=== PATIENT | female | born 1950 | race Caucasian/White ===

== ENCOUNTER 2016-12-07 19:32 | Inpatient (IN) | payer BC ==
--- NOTE | ~2016-12-07 | DS ---
Discharge Summary [facility] [address] [place]. [address] NAME: TAMEKA JIMENEZ : 54 STATUS : DIS IN PAT#: [id number] AGE: 66 ADM/REG DATE : 12/07/16 MR#: [id number] REPORT SERV DATE: 12/20/16 DICTATED BY: MARY ELLEN BATRES DATE: 12/19/16 REPORT STATUS : Draft TRANSCRIBED BY: KIM DATE: 12/19/16 Data Collection from hospitalization DISCHARGE DIAGNOSES: 1. Atrial flutter. 2. Paroxysmal atrial fibrillation. 3. Hypertension. 4. Gastroesophageal reflux disease. 5. Depression. CONSULTATIONS: None. PROCEDURES PERFORMED: Electrophysiology study, ablation, and pacemaker implantation, 12/09/2016. MEDICATIONS: Fosamax 70 mg on Mondays as instructed, Tessalon 100 mg three times a day, Zyrtec 10 mg daily as needed, Maximum D3 one capsule on Thursday as instructed, Celexa 20 mg daily, Nexium 20 mg daily, Cozaar 100 mg daily, Lopressor 25 mg twice a day, Xarelto 20 mg at bedtime, Betapace 80 mg every 12 hours as instructed, Ultram 50 mg every four hours as needed. CONDITION AT DISCHARGE: Stable. DISPOSITION: The patient was discharged home on a low-sodium, low-cholesterol, cardiac diet with activities as instructed. She would follow up with Dr. Carlos Branham, 12/31/[address] Mary Ellen Batres, 12/22/2016. She would follow up for an EKG at [facility] Main office, 12/18/2016. HOSPITAL COURSE: This is a 66-year-old female, who has a history of paroxysmal atrial fibrillation, currently treated with Xarelto and beta-steven. The patient said she had never started her flecainide that had been prescribed in October of 2016 because she was "scared." She has had episodes of elevated heart rate since August 2016 and these became more persistent since 12/04/2016. She had noticed her heart rate at time being about 140 beats per minute. She never began the flecainide. She said that she discussed the medication with her pharmacist and she was just cautious and scared given the side effects discussed. She reported associated shortness of breath and 5/10 chest pain as well as fatigue and dizziness. She denied nausea or diaphoresis. She was admitted to the hospital at this time for further evaluation and treatment. Upon admission, her white blood cell count was 13.3, INR level was 1.4, troponin levels were 0.06 and 0.05. The patient had paroxysmal atrial fibrillation and was currently receiving Xarelto and beta-steven. She reports that she never initiated the flecainide. She had now converted to a sinus rhythm. Flecainide was going to be initiated. Blood pressure medications were going to be continued as well as her proton pump inhibitor. The next day, the patient had undergone a previous radiofrequency ablation. At this time, she was back in a sinus rhythm. Her Xarelto was held. It was felt that she would need a dual-chamber pacemaker placed. Flecainide was going to be continued. On the , she was in atrial fibrillation/flutter with rapid ventricular response with spontaneous conversion to sinus Discharge Summary [address] [address] NAME: TAMEKA JIMENEZ : 54 STATUS : DIS IN PAT#: [id number] AGE: 66 ADM/REG DATE : 12/07/16 MR#: [id number] REPORT SERV DATE: 12/20/16 DICTATED BY: MARY ELLEN BATRES DATE: 12/19/16 REPORT STATUS : Draft TRANSCRIBED BY: KIM DATE: 12/19/16 with a long 7-8 second pause. She had been scheduled to undergo a pacemaker. Flecainide had been started. She had recurrent paroxysmal atrial fibrillation/flutter that morning. She was felt to have atrial flutter and sick sinus syndrome. The patient underwent electrophysiology study, ablation, and pacemaker implantation. She tolerated this well and there were no complications. Discharge planning was performed. On 12/10/2016, the patient had been started on sotalol. She was alert and cooperative. Discharge instructions were given. Due to her improved and stable condition, she was discharged home with the above- stated instructions. Information collected by: Georgina Richardson I submit the above information as my discharge summary. CHRISTIAN/KIM Mary Ellen Batres M.D. / [id number] CC: Manpreet Caban M.D.
--- NOTE | ~2016-12-07 | TEE ---
Transesophageal Echocardiogram [facility] [address] [place]. [address] NAME: TAMEKA JIMENEZ : 54 STATUS : ADM Sha PAT#: [id number] AGE: 66 ADM/REG DATE : 12/07/16 MR#: [id number] REPORT SERV DATE: 12/09/16 DICTATED BY: CESAR DHILLON DATE: 12/09/16 REPORT STATUS : Draft TRANSCRIBED BY: MODLeonid DATE: 12/09/16 INDICATIONS: A 66-year-old woman with atrial flutter. PROCEDURE: After questions were answered and consents were signed, the patient was sedated with propofol per Anesthesia. The probe was placed in the mid esophagus, and images were obtained without difficulty. At the conclusion of the procedure, the probe was withdrawn. The patient was to proceed with her EP procedure. 2D INTERPRETATION: The left ventricular function is mildly decreased with an estimated EF of 45%, although the apex is not well visualized. No paradoxical septal motion is suggested. The mitral valve opened adequately. No prolapse was noted. Mild thickening was noted. No thrombus was noted in the left atrium nor the left atrial appendage. The interatrial septum was intact. The right atrium and right ventricle were grossly normal in size. The aortic valve was sclerotic, but opened adequately. COLOR FLOW: Moderate tricuspid and mitral regurgitation with moderate aortic insufficiency. DOPPLER: Doppler flow velocities in left atrial appendage were approximately 20 cm/second. CONCLUSION: 1. MILDLY DECREASED LEFT VENTRICULAR SYSTOLIC FUNCTION WITH ESTIMATED LVEF OF 45%. 2. MODERATE VALVULAR REGURGITATION ABOVE. 3. NO SIGN OF LEFT ATRIAL APPENDAGE CLOT. WO/YANICKL Cesar Dhillon M.D., Ph.D, F.A.C.C. / [id number] CC: Manpreet Caban M.D.
--- NOTE | ~2016-12-07 | HP ---
History And Physical [facility] [address] [place]. [address] NAME: TAMEKA JIMENEZ : 54 STATUS : ADM Sha PAT#: [id number] AGE: 66 ADM/REG DATE : 12/07/16 MR#: [id number] REPORT SERV DATE: 12/08/16 DICTATED BY: LANI GRACIA DATE: 12/08/16 REPORT STATUS : Draft TRANSCRIBED BY: MODLeonid DATE: 12/08/16 DATE OF ADMISSION: 12/07/2016 MEDICAL CENTER REPRESENTATIVE: Carlos Branham M.D. DOULA: Al Batres M.D. CHIEF COMPLAINT: Elevated heart rate. HISTORY OF PRESENT ILLNESS: A very pleasant 66-year-old white female with known history of PAF, currently treated with Xarelto and beta-steven. The patient states that she never started her flecainide prescribed in 10/2016 because she was "scared." She has had episodes of elevated heart rate since 08/2016 that became more persistent since 12/04. She has noticed her heart rate at times being 140 beats per minute on her wrist monitor. Again, she never began the flecainide prescribed in 10/[address] Branham. She states she discussed the medication with her pharmacist and she was just cautious and scared given the side effects discussed. She reports associated shortness of breath, 5/10 chest pain with dizziness and fatigue. Denies any nausea or diaphoresis. She reports some belching, which is unchanged from baseline. The chest pain has resolved at time of interview in the CDU. The patient denies any personal history of myocardial infarction, stroke, DVT, or pulmonary embolus. The patient denies any recent fever or chills. Describes palpitations since August that became more persistent last week. Denies syncopal episodes. No PND or orthopnea. PAST MEDICAL HISTORY: 1. PAF. a. On Xarelto and beta-steven. b. Status post ablation, 04/2016. c. Never started flecainide 50 twice daily, prescribed in 10/2016. 2. Hypertension. 3. Mild aortic stenosis. 4. GERD. 5. Depression. 6. Cholesterol, followed by PCP. 7. Denies diabetes. PAST SURGICAL HISTORY: 1. Ablation, 04/2016. 2. Cholecystectomy. 3. Hysterectomy. 4. Two C-sections. 5. Tonsillectomy. SOCIAL HISTORY: She is single, with two children. 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 Does not have a structured exercise routine. Denies tobacco or illicits. Occasionally consumes alcohol. History And Physical [address] [place]. [address] NAME: TAMEKA JIMENEZ : 54 STATUS : ADM Sha PAT#: [id number] AGE: 66 ADM/REG DATE : 12/07/16 MR#: [id number] REPORT SERV DATE: 12/08/16 DICTATED BY: LANI GRACIA DATE: 12/08/16 REPORT STATUS : Draft TRANSCRIBED BY: KIM DATE: 12/08/16 FAMILY HISTORY: Father of a heart attack at 71 with reported previous coronary events. Mother with a stroke in her 70s and a heart attack in her 70s, remains alive at the age of 84. REVIEW OF SYSTEMS: A 14-point review of systems performed, significant per HPI. No other contributory diagnoses identified. ALLERGIES: NO KNOWN DRUG ALLERGIES. HOME MEDICATIONS: Fosamax 70 mg weekly; Zyrtec 10 mg p.r.n.; Maximum D3, 10,000 units weekly; Celexa 20 mg daily; Nexium 20 mg daily; losartan 100 mg daily; metoprolol tartrate 25 mg twice daily, Xarelto 20 mg at bedtime, flecainide 50 mg twice daily prescribed 10/22/2016 (never started). PHYSICAL EXAMINATION: VITAL SIGNS: Blood pressure 122/58, pulse 62, respirations 22, temperature 98.3, O2 saturation 96% on room air. Height 5 feet 8 inches, weight 187 pounds, BMI 28.4. GENERAL: Cooperative, in no apparent distress. HEENT: Pupils 2 mm. Sclera nonicteric. Nares patent. Moist mucous membranes. No xanthelasma. NECK: Trachea midline. No thyromegaly. No JVD. No bruits. LYMPH: No cervical lymphadenopathy. No supraclavicular lymphadenopathy. RESPIRATORY: Unlabored respirations. Breath sounds clear bilaterally to posterior auscultation. No wheezes or rhonchi. CARDIOVASCULAR: Regular rate. 1/6 murmur best audible at left base. EXTREMITIES: Without edema. Pulses 2+ bilaterally. ABDOMEN: Soft, nontender, nondistended. Normal bowel sounds auscultated throughout. No organomegaly. SKIN: Warm, dry extremities. No pallor or cyanosis. PSYCHIATRIC: Appropriate affect. Alert, oriented x3. LABORATORY DATA: Troponin 0.06 and 0.05. TSH 4.270, free T4 of 0.96. Potassium 3.9, BUN 10, creatinine 0.93, glucose 109, calcium 10.5, magnesium 2.2. BNP 681.8. WBC 13.3, hemoglobin 12.0, hematocrit 36.5, platelet count 940,000. PT 18.4, INR 1.5. EKG, sinus rhythm with ST and T-wave abnormalities in anterior and lateral leads (previously atrial flutter), now sinus rhythm. Echo, 05/14/2016: EF 55 to 60. Small loculated pericardial effusion without evidence of tamponade. MPI, 11/2015: Anuj stage 2, 4.75 minutes, 7 METs. No chest pain, but with EKG changes. Normal perfusion images. Ablation, 04/2016, by Dr. Batres. History And Physical [address] [address] NAME: TAMEKA JIMENEZ : 54 STATUS : ADM Sha PAT#: [id number] AGE: 66 ADM/REG DATE : 12/07/16 MR#: [id number] REPORT SERV DATE: 12/08/16 DICTATED BY: LANI GRACIA DATE: 12/08/16 REPORT STATUS : Draft TRANSCRIBED BY: MODLeonid DATE: 12/08/16 ASSESSMENT AND PLAN: 1. Paroxysmal atrial fibrillation, currently on Xarelto and beta-steven. The patient reports never initiated flecainide as prescribed on 10/22/2016, has now converted to sinus rhythm. The patient will be seen by a rounding physician this morning with plan to initiate flecainide 50 twice daily. Follow up with Cardiology for six-month ablation check with Dr. Batres and Dr. Branham as appropriate. 2. Hypertension. Monitor blood pressure and continue home meds. 3. Gastroesophageal reflux disease. Continue PPI. 4. BP of 682 and no evidence of heart failure and troponin of 0.06 and 0.05, most likely demand related. The patient will follow up with Cardiology as previously scheduled. LUIS/YANICKL JEOVANY Pardo, RETREAD SUPERVISOR- / [id number] CC: JEOVANY Pardo, RETREAD SUPERVISOR- Manpreet Kerns M.D. David Wendt, M.D.
[2016-12-07 17:48] LABS: INTERNATIONAL NORMAL RATI 1.5 UNITS (-)
[2016-12-07 17:49] LABS: BASOPHILS 2.4 %; BASOPHILS ABSOLUTE 0.32 10/3/uL (0.0-0.16); EOSINOPHILS 4.9 %; EOSINOPHILS ABSOLUTE 0.65 10/3/uL (0.0-0.53); ER CBC TAT 0 Hrs 14 Mins; HEMATOCRIT 36.5 % (36.0-48.0); IMMATURE GRANULOCYTES 0.5 %; IMMATURE GRANULOCYTES ABSOLUTE 0.07 10/3/uL (0.0-0.11); LYMPHOCYTES 28.9 %; LYMPHOCYTES ABSOLUTE 3.85 10/3/uL (0.67-4.30); MEAN CORPUS HGB CONC 32.9 g/dL (32.0-36.0); MEAN CORPUSCULAR HEMOGLOB 29.2 pg (26.0-34.0); MEAN CORPUSCULAR VOLUME 88.8 fL (80-100); MEAN PLATELET VOLUME 10.5 fL (9.2-13.0); MONOCYTES 6.5 %; MONOCYTES ABSOLUTE 0.87 10/3/uL (0.21-1.20); NEUTROPHILS 56.8 %; NEUTROPHILS ABSOLUTE 7.54 10/3/uL (2.02-8.40); NUCLEATED RED BLOOD CELLS 0.6 /100WBC (0-0); PARTIAL THROMBO TIME 39.9 SEC (22.5-37.2); RBC DISTRIBUTION WIDTH 19.2 % (12.0-16.0); RED CELL COUNT 4.11 10/6/uL (4.0-5.6); WHITE BLOOD CELLS 13.3 10/3/uL (4.5-10.5)
[2016-12-07 17:50] LABS: MANUAL DIFF NO %; PLATELET COUNT 940 10/3/uL (150-400)
[2016-12-07 17:56] LABS: BUN (BLOOD UREA NITROGEN) 10 MG/DL (6-23); CALCIUM, SERUM 10.5 MG/DL (8.5-10.4); CHEST PAIN PROFILE TAT 0 Hrs 21 Mins; CHLORIDE, SERUM 113 MMOL/L (96-112); CO2 (CARBON DIOXIDE) 26 MMOL/L (24-34); CREATININE 0.93 MG/DL (0.55-1.02); GFR AFRICAN AMERICAN 75 ML/MIN (>=60); GFR NON AFRICAN AMERICAN 65 ML/MIN (>=60); GLUCOSE, SERUM 109 MG/DL (60-99); POTASSIUM, SERUM 3.9 MMOL/L (3.5-5.3); SODIUM, SERUM 144 MMOL/L (135-148); TROPONIN I 0.06 NG/ML (<0.05)
[2016-12-07 17:58] LABS: PROTIME (NOT ORD) 18.4 SEC (12.0-14.5)
[2016-12-07 18:00] LABS: RBC MORPHOLOGY NORM (NORMAL)
[~2016-12-07 19:32] MED LIST: ACET500CAP PO; ALKA-SELTZER H1 EACH PO; BETAPACE80 PO; BYSTOLIC5 MG PO; CARDCD180 PO; CARTIA XT180 MG/24 PO; CELEXA20 PO; CELEXA40 MG PO; COZAAR100 MG PO; FOSAMAX70 MG PO; LOP25 PO; LOP50 PO; MAXIMUM D3 PO; NEXIUM20 M1 PO; XARELTO20 MG PO; ZYRTEC ALLGY10 MG PO
[2016-12-08 00:13] LABS: ALBUMIN 3.7 G/DL (3.5-5.0); DIRECT BILIRUBIN 0.2 MG/DL (0.0-0.4); FREE T4 0.96 NG/DL (0.76-1.46); INDIRECT BILIRUBIN(NOT ORDER) 0.7 MG/DL (0.1-0.9); TOTAL BILIRUBIN 0.9 MG/DL (0-1.2); TROPONIN I 0.05 NG/ML (<0.05); ULTRASENSITIVE TSH 4.27 MCIU/ML (0.358-3.740)
[2016-12-08] MEDS ORDERED: FLECAINIDE100 MG PO (09:46)
[2016-12-09 04:02] LABS: BUN (BLOOD UREA NITROGEN) 13 MG/DL (6-23); CALCIUM, SERUM 9.8 MG/DL (8.5-10.4); CHLORIDE, SERUM 112 MMOL/L (96-112); CREATININE 0.83 MG/DL (0.55-1.02); GFR AFRICAN AMERICAN 86 ML/MIN (>=60); GFR NON AFRICAN AMERICAN 75 ML/MIN (>=60); GLUCOSE, SERUM 116 MG/DL (60-99); SODIUM, SERUM 142 MMOL/L (135-148)
[2016-12-09 04:05] LABS: CO2 (CARBON DIOXIDE) 21 MMOL/L (24-34)
[2016-12-09 04:08] LABS: BASOPHILS 2.6 %; BASOPHILS ABSOLUTE 0.37 10/3/uL (0.0-0.16); EOSINOPHILS 5.4 %; EOSINOPHILS ABSOLUTE 0.75 10/3/uL (0.0-0.53); HEMATOCRIT 34.3 % (36.0-48.0); HEMOGLOBIN 11.4 g/dL (12.0-16.0); IMMATURE GRANULOCYTES 0.6 %; IMMATURE GRANULOCYTES ABSOLUTE 0.08 10/3/uL (0.0-0.11); LYMPHOCYTES ABSOLUTE 3.35 10/3/uL (0.67-4.30); MEAN CORPUS HGB CONC 33.2 g/dL (32.0-36.0); MEAN CORPUSCULAR HEMOGLOB 29.3 pg (26.0-34.0); MEAN CORPUSCULAR VOLUME 88.2 fL (80-100); MEAN PLATELET VOLUME 10.6 fL (9.2-13.0); MONOCYTES ABSOLUTE 0.98 10/3/uL (0.21-1.20); NEUTROPHILS 60.4 %; NEUTROPHILS ABSOLUTE 8.45 10/3/uL (2.02-8.40); NUCLEATED RED BLOOD CELLS 0.8 /100WBC (0-0); RBC DISTRIBUTION WIDTH 19.3 % (12.0-16.0); RED CELL COUNT 3.89 10/6/uL (4.0-5.6)
[2016-12-09 04:10] LABS: MANUAL DIFF NO %; PLATELET COUNT 851 10/3/uL (150-400)
[2016-12-09 04:21] LABS: ANISOCYTOSIS 1+ (5-10/OIF) (0-5/OIF)
[2016-12-09 04:22] LABS: GIANT PLATELET OCC
[2016-12-10] MEDS ORDERED: BETAPACE80 PO (15:33)
[2016-12-10] MEDS ORDERED: TESS PO (15:35)
[2016-12-10] MEDS ORDERED: ULTRAM50 PO (15:35)
[2016-12-24] MEDS ORDERED: LIDO PO (10:06)
[2016-12-24] MEDS ORDERED: [UNRECOGNIZED DRUG - OTHER] PO (10:06)
[2016-12-24] MEDS ORDERED: ZYRTEC ALLGY10 MG PO (10:10)
[2016-12-24] MEDS ORDERED: FOSAMAX70 MG PO (10:10)
[2016-12-24] MEDS ORDERED: TESS PO (10:11)
[2016-12-24] MEDS ORDERED: CELEXA20 PO (10:12)
[2016-12-24] MEDS ORDERED: MAXIMUM D3 PO (10:12)
[2016-12-24] MEDS ORDERED: NEXIUM20 M1 PO (10:13)
[2016-12-24] MEDS ORDERED: LOP25 PO (10:14)
[2016-12-24] MEDS ORDERED: COZAAR100 MG PO (10:14)
[2016-12-24] MEDS ORDERED: XARELTO20 MG PO (10:15)
[2016-12-24] MEDS ORDERED: BETAPACE80 PO (10:15)
== END 2016-12-10 16:00 | disposition home or self-care (01) | DRG 244 ==
LOC: ER 19:32 → CDU1 19:47 → CDU2 20:30
PROVIDERS: Clinical Nurse Specialist; Emergency Medicine; Internal Medicine Cardiovascular Disease
PROC: 0JH606Z Insertion of Pacemaker, Dual Chamber into Chest Subcutaneous Tissue and Fascia, Open Approach (ICD-10-PCS; principal; 2016-12-09)
PROC: 02H63JZ Insertion of Pacemaker Lead into Right Atrium, Percutaneous Approach (ICD-10-PCS; 2016-12-09)
PROC: 02HK3JZ Insertion of Pacemaker Lead into Right Ventricle, Percutaneous Approach (ICD-10-PCS; 2016-12-09)
PROC: 4A023FZ Measurement of Cardiac Rhythm, Percutaneous Approach (ICD-10-PCS; 2016-12-09)
PROC: 4A0234Z Measurement of Cardiac Electrical Activity, Percutaneous Approach (ICD-10-PCS; 2016-12-09)
PROC: 02K83ZZ Map Conduction Mechanism, Percutaneous Approach (ICD-10-PCS; 2016-12-09)
PROC: 5A2204Z Restoration of Cardiac Rhythm, Single (ICD-10-PCS; 2016-12-09)
DX: I48.92 Unspecified atrial flutter (principal); I49.5 Sick sinus syndrome; I10 Essential (primary) hypertension; I48.0 Paroxysmal atrial fibrillation; K21.9 Gastro-esophageal reflux disease without esophagitis; Z79.01 Long term (current) use of anticoagulants; I35.0 Nonrheumatic aortic (valve) stenosis; F32.9 Major depressive disorder, single episode, unspecified; Z90.49 Acquired absence of other specified parts of digestive tract; Z90.710 Acquired absence of both cervix and uterus; Z82.3 Family history of stroke
CPT/HCPCS: 33208; 71010; 71020; 80048; 80076; 83735; 83880; 84439; 84443; 84484; 85025; 85610; 85730; 93005; 93312; 93320; 93325; 93613; 93620; 99285; A9270-GY; C1732; C1769; C1781; C1785; C1892; C1894; C1898; J0282; J0690; J2250; J2930; J3010; Q9967

== ENCOUNTER 2016-12-24 11:04 | Inpatient (IN) | payer BC ==
--- NOTE | ~2016-12-24 | CN ---
Consultation Report [facility] [address] [place]. [address] NAME: TAMEKA JIMENEZ : 54 STATUS : ADM IN [facility]#: [id number] AGE: 66 ADM/REG DATE : 12/24/16 MR#: [id number] REPORT SERV DATE: 12/25/16 DICTATED BY: SONJA MILLER DATE: 12/24/16 REPORT STATUS : Draft TRANSCRIBED BY: KIM DATE: 12/24/16 DATE OF CONSULTATION: CHIEF COMPLAINT: Altered mental status, hypotension, and pericardial effusion. HISTORY OF PRESENT ILLNESS: The patient presented to the ER this morning with complaints of altered mental status and hypotension. She states that she took all of her medications including losartan, metoprolol, sotalol, and Xarelto. She reported a blood pressure of 70/40 yesterday evening. She did have a pacemaker inserted two weeks ago by Dr. Al Batres. She saw Dr. Branham in the office on Thursday and was asymptomatic. In the emergency room, her hypotension attempted to be stabilized with Levophed and a saline bolus, but pressures remained labile. Bedside echo showed a pericardial effusion and was confirmed with CT scan of the chest and the abdomen. There was no pleural effusion noted. Dr. Miller has been consulted for pericardial window. PAST MEDICAL HISTORY: 1. Hypertension. 2. Atrial flutter/atrial fib, managed with Xarelto. 3. GERD. 4. Depression. 5. DVT. PAST SURGICAL HISTORY: 1. Ablation in 04/2016. 2. Cholecystectomy. 3. Hysterectomy. 4. x2. 5. Tonsillectomy. 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 She denies smoking, alcohol, or illicit drug use. FAMILY HISTORY: Father of an [place] at 71. Mother of a stroke in her 70s. REVIEW OF SYSTEMS: 12-point review of systems was obtained and otherwise negative except dictated in the history of present illness. PHYSICAL EXAMINATION: GENERAL: 66-year-old white female, who was otherwise in good health until yesterday evening when hypotension developed, status post pacemaker insertion two weeks ago. VITAL SIGNS: She is A-paced at a rate of 60. She is 100% on 2 L nasal cannula, respiratory rate 20, blood pressure 74/43 on 20 mcg/min of Levophed. SKIN: She has a left subclavian incision secondary to pacemaker insertion. Wound bed is clean, dry, and intact with healing scar. No ulceration or signs and symptoms of infected Consultation Report [facility] [address] [place]. [address] NAME: TAMEKA JIMENEZ : 54 STATUS : ADM IN [facility]#: [id number] AGE: 66 ADM/REG DATE : 12/24/16 MR#: [id number] REPORT SERV DATE: 12/25/16 DICTATED BY: SONJA MILLER DATE: 12/24/16 REPORT STATUS : Draft TRANSCRIBED BY: KIM DATE: 12/24/16 noted. HEENT: Normocephalic. Pupils reactive, equal, round. Ears are symmetrical with no deficits noted, no symmetrical with drainage or deviated septum. Mouth: Oral mucosa is pink and dry with no noted ulcerations or missing teeth. NECK: Trachea is midline with no lymph node enlargement. HEART/CARDIAC: She is A-paced at 60 with S1, S2 heart sounds. No murmurs, rubs, or muscle tones noted. LUNGS: Clear to auscultation at 2 L nasal cannula at 100% oxygen saturation. ABDOMEN: Soft, nontender with active bowel sounds. GENITOURINARY: Unable to assess. She had not voided at time of exam. MUSCULOSKELETAL: Arm personal trainer equal bilaterally. No weakness of extremity or limited range of motion. VASCULAR: Extremities cool to touch with +1 bilateral pedal pulses and +1 bilateral radial pulses. There was no evide of any pitting edema. LYMPHATIC: No lymph node enlargement. NEUROLOGICAL: The patient is awake, alert, and oriented x3 with slowed responses, but remains oriented. Her cranial nerves 2 through 12 were assessed and intact. LABORATORY DATA: Her labs today in the emergency room showing a lactate is 2.8, white blood cell count 25.4, hemoglobin 11.7, hematocrit 36.1, platelets 931. Her renal function panel showed a sodium of 132, potassium 5.6, chloride 99, CO2 of 20, BUN 40, creatinine 3.18 and this is elevated from creatinine on 12/09/2016 at 0.8 mg/dL and BUN 15. ALT 103, AST 126. Troponin is negative at 0.02. Her BNP is 176.1. ASSESSMENT/IMPRESSION AND PLAN: 1. Pericardial effusion. The patient to be taken to the operating room for pericardial window. Consent for procedure has been signed, and Dr. Miller will discuss and review procedure with the patient in the operating room. Family was present with her at bedside and all agreed for consent for this procedure. 2. Acute kidney injury. Her creatinine has risen from 0.8 on 12/09/2016 to 3.18 today today in the emergency room. Renal has been consulted. Suspect decline due to prolong periods of hypotension, use of losartan and Xarelto. 3. Leukocytosis. White blood cell count is 25.4. The patient is afebrile. Fluid of pericardial to be obtained for culture. 4. Hypotension. We will continue use of the Levophed drip as the patient will be rolled to the operating room soon. 5. Elevated INR. The patient has been taking Xarelto with no other blood thinners such as Coumadin, Plavix. INR is elevated at 3.3. Dr. Miller is aware of her INR elevation and the patient was type and crossed for 2 units of packed red blood cells, 2 units of fresh frozen plasma, and 10 units of cryoprecipitate. This blood products will be delivered to OR and stat procedure for administration and stabilization of the patient. I appreciate participation in the care of this patient and we will continue to follow postoperatively. Consultation Report [address] [place]. [address] NAME: TAMEKA JIMENEZ : 54 STATUS : ADM IN [facility]#: [id number] AGE: 66 ADM/REG DATE : 12/24/16 MR#: [id number] REPORT SERV DATE: 12/25/16 DICTATED BY: SONJA MILLER DATE: 12/24/16 REPORT STATUS : Draft TRANSCRIBED BY: KIM DATE: 12/24/16 DICTATED BY: FESTUS Peters/KIM Sonja Miller M.D. / [id number] CC: Carlos Branham M.D.
--- NOTE | ~2016-12-24 | OP ---
Record Of Operation [facility] [address] [place]. [address] NAME: TAMEKA MORRIS : 54 STATUS : ADM IN PAT#: [id number] AGE: 66 ADM/REG DATE : 12/24/16 MR#: [id number] REPORT SERV DATE: 12/24/16 DICTATED BY: CHARLIE COTE DATE: 12/24/16 REPORT STATUS : Draft TRANSCRIBED BY: KIM DATE: 12/24/16 DATE OF PROCEDURE: 12/24/2016 CENTRAL SUPPLY NURSE: Ashely Young. PREOPERATIVE DIAGNOSES: 1. Cardiac tamponade. 2. Status post atrial fibrillation ablation. 3. Indwelling pacemaker. POSTOPERATIVE DIAGNOSES: 1. Cardiac tamponade. 2. Status post atrial fibrillation ablation. 3. Indwelling pacemaker. OPERATION/PROCEDURE PERFORMED: 1. Subxiphoid pericardial window. 2. Transesophageal echo. COMPLICATIONS: None. ESTIMATED BLOOD LOSS: Minimal. SPECIMENS REMOVED: Pericardium and approximately 480 mL of bloody sanguinous pericardial fluid. TUBES AND DRAINS: A 24-Egyptian Ruben to the pericardial space. INTRAOPERATIVE FINDINGS: Bloody effusion. The pericardium appeared normal. On transesophageal echo, there was moderate AI, moderate , with a peak gradient of 54 and a mean gradient of 19. This was done while the patient was on significant inotropic support. There was mild MR. Postprocedure transesophageal echo showed that the effusion was drained and the tamponade was released. INDICATIONS FOR PROCEDURE: Ms. Morris is a 66-year-old female, status post AFib ablation and permanent pacemaker placement, who was been on Xarelto. She presented to the hospital in cardiogenic shock and underwent echocardiogram and was found to have cardiac tamponade. Cardiac Surgery was consulted. Risks, benefits, and alternatives were discussed with the patient and she was taken emergently to the operating room. DETAILS OF PROCEDURE: The patient was brought to the operating room and placed supine on the table. Arterial monitor was placed and she was prepped and draped while awake. After I was scrubbed standing at the bedside, general anesthesia was induced. She tolerated this amazingly well. A subxiphoid incision was then performed. Skin and subcutaneous tissues were divided. Linea alba was divided. This xiphoid was split in the midline. An Army-Snover was placed under the bottom portion of the sternum and elevated. Dissection was carried up Record Of Operation [facility] [id number] [facility] [place]. [address] NAME: TAMEKA MORRIS : 54 STATUS : ADM IN [facility]#: [id number] AGE: 66 ADM/REG DATE : 12/24/16 MR#: [id number] REPORT SERV DATE: 12/24/16 DICTATED BY: CHARLIE COTE DATE: 12/24/16 REPORT STATUS : Draft TRANSCRIBED BY: KIM DATE: 12/24/16 to the pericardium. A small paul was made in the pericardium and then approximately 480 mL of fluid were removed. Once the fluid was all out, the incision was widened and a small piece of pericardium was excised using electrocautery and sent for permanent pathology. A Ruben drain was then placed in the pericardial space and exteriorized. The patient tolerated the procedure well. The procedure was terminated and the incision was closed with a running #1 Stratafix for the clavipectoral fascia and the linea alba. The subcutaneous tissues were closed with a continuation of the Stratafix and the skin was closed using 2-0 Quill. Dry sterile dressings were placed. The Ruben was hooked to a Pleur-evac, and the patient was transferred to CVICU in critical, stable condition. SHANNAN/KIM Charlie Cote MD / [id number] CC: Charlie Cote MD
--- NOTE | ~2016-12-24 | CN ---
Consultation Report [facility] [address] [facility] [address] [place]. [address] NAME: TAMEKA JIMENEZ : 54 STATUS : ADM IN [facility]#: [id number] AGE: 66 ADM/REG DATE : 12/24/16 MR#: [id number] REPORT SERV DATE: 12/24/16 DICTATED BY: MARY ELLEN SAPP DATE: 12/24/16 REPORT STATUS : Draft TRANSCRIBED BY: MODLeonid DATE: 12/24/16 CONSULTATION REPORT DATE OF CONSULTATION: 12/24/2016 REASON FOR CONSULTATION: Critical care management. HISTORY OF PRESENT ILLNESS: The patient is a 66-year-old white female with a past medical history of paroxysmal atrial fibrillation, hypertension, and hyperlipidemia who is status post pacemaker placement two weeks ago, who apparently on the last evening became ill with increasing lethargy and drowsiness and was difficult to arouse this morning, so they brought her here to the emergency room. She was denying any shortness of breath, chest pain, or syncopal episodes at that time, though she was somewhat somnolent. On arrival here, she was found to be in shock with a systolic blood pressure ranging in the 60s to the 80s with normal saturation. At the time in the ER, a bedside ultrasound showed a pericardial effusion and EKG was suggestive of pericarditis, and so she was taken to the OR by Dr. Bradford who evacuated approximately 500 mL of blood from her pericardial sac. She was a little unstable on pressors during the surgery and is now in the CVICU on pressors and ventilator. We are consulted for assistance in management of her critical illness. PAST MEDICAL HISTORY: 1. Paroxysmal atrial fibrillation, status post AICD placement two weeks ago. 2. Hypertension. 3. Mild aortic stenosis. 4. Gastroesophageal reflux disease. 5. Depression. 6. Hyperlipidemia. 7. History of cholecystectomy. 8. History of hysterectomy. 9. History of tonsillectomy. HOME MEDICATIONS: See home medication reconciliation form. ALLERGIES: NO KNOWN DRUG ALLERGIES. SOCIAL HISTORY: No tobacco, alcohol, or IV drug abuse. FAMILY HISTORY: Positive for coronary artery disease in her mother and father as well as CVA in her mother. REVIEW OF SYSTEMS: A 10-point review of systems unable to be obtained secondary to sedation and intubation. PHYSICAL EXAMINATION: Consultation Report [facility] [id number] [place]. [address] NAME: TAMEKA JIMENEZ : 54 STATUS : ADM IN PAT#: [id number] AGE: 66 ADM/REG DATE : 12/24/16 MR#: [id number] REPORT SERV DATE: 12/24/16 DICTATED BY: MARY ELLEN SAPP DATE: 12/24/16 REPORT STATUS : Draft TRANSCRIBED BY: MODL DATE: 12/24/16 VITAL SIGNS: Temperature 97.0, heart rate 110, respiratory rate 16, and blood pressure 118/68. GENERAL: Sedated and intubated. HEENT: Pupils are equal, round, and reactive to light. Extraocular movements are intact. Oropharynx is clear. Moist mucous membranes. NECK: Supple and nontender. No lymphadenopathy. No thyromegaly. No jugular venous distention. LUNGS: Coarse breath sounds bilaterally. CARDIOVASCULAR: Tachycardic, irregularly irregular. No murmurs, rubs, or gallops. ABDOMEN: Soft, nontender, and nondistended. Positive bowel sounds. No hepatosplenomegaly. EXTREMITIES: No cyanosis, clubbing, or edema. NEURO: Sedated. PSYCH: Unable to assess. LABS AND IMAGING: CBC with a white count 23,000 and hemoglobin of 9. Chest x-ray shows some mild left basilar atelectasis. Metabolic profile remarkable for sodium 132, potassium of 5.6, and creatinine of 3.1. Troponin negative. Procalcitonin 0.9. Lactic acid 0.9. ASSESSMENT AND PLAN: The patient is a 66-year-old female with a past medical history of paroxysmal atrial fibrillation, now status post two weeks pacemaker placement, who presented with pericardial effusion, cardiac tamponade and shock, and acute renal failure, now with postoperative respiratory failure and atrial fibrillation. 1. Postoperative respiratory failure. We will continue ventilator management. I have changed her modality from SIMV to CMV. We will sedate her with propofol and fentanyl as needed. We will provide daily awakening trials and wean her and potentially do a CPAP trial in the morning with hopes of extubation. 2. Shock. The patient remains on Levophed. We will wean this for a MAP greater than 65, likely this with hemorrhagic shock. We will continue to monitor this. 3. Acute renal failure. The patient's creatinine is elevated above her baseline. We are getting a Nephrology to see. We will continue to monitor her electrolytes and urine output closely. 4. Atrial fibrillation. Currently, the patient is rate controlled. We will defer to Cardiology for management of her atrial fibrillation. 5. The patient will be on SCDs for deep venous thrombosis prophylaxis. She will be on Protonix for gastrointestinal prophylaxis. 6. Appreciate the consult. We will continue to follow along the patient with you. Please call with questions. 7. Total critical care time spent on this patient was 45 minutes. RIGO/KIM Mary Ellen Sapp MD Consultation Report [address] [place]. [address] NAME: TAMEKA JIMENEZ : 54 STATUS : ADM IN [facility]#: [id number] AGE: 66 ADM/REG DATE : 12/24/16 MR#: [id number] REPORT SERV DATE: 12/24/16 DICTATED BY: MARY ELLEN SAPP DATE: 12/24/16 REPORT STATUS : Draft TRANSCRIBED BY: KIM DATE: 12/24/16 / [id number] CC: Carlos Branham M.D.
--- NOTE | ~2016-12-24 | HP ---
History And Physical [facility] [id number] [place]. [address] NAME: TAMEKA JIMENEZ : 54 STATUS : ADM IN [facility]#: [id number] AGE: 66 ADM/REG DATE : 12/24/16 MR#: [id number] REPORT SERV DATE: 12/24/16 DICTATED BY: SONJA BOWEN JR. DATE: 12/24/16 REPORT STATUS : Draft TRANSCRIBED BY: KIM DATE: 12/24/16 DATE OF ADMISSION: 12/24/2016 PRIMARY CARE PHYSICIAN: Dr. Song. [facility] FOUNDRY WORKER APPRENTICE: Carlos Branham M.D. EP FOUNDRY WORKER APPRENTICE: Al Batres M.D. CHIEF COMPLAINT: Shock. HISTORY OF PRESENT ILLNESS: 66-year-old white female, approximately two weeks' status post permanent pacemaker insertion. The pacemaker site looks a bit crusty, but no adrián pus is draining from the site. She reports no fever at home, but she has had some chills. She was complaining of chest pain interpreted by the patient and Dr. Branham on Thursday as indigestion. She was given some stomach medicines by Dr. Branham and subsequently in the week by Dr. Song. She became more ill last evening and was difficult to arouse early this morning with extreme drowsiness. No syncope. Chest pain. She was afebrile on arrival and shocky with initial blood pressure recorded at 74/45. Oxygen saturation on 2 L at 100%. Significant laboratory abnormalities are present including a white count of 25,000. New acute kidney injury with a BUN and creatinine of 40 and 3.2 respectively. Potassium 5.6. BNP 176. INR on 20 mg of Xarelto 3.3 which, in the presence of acute kidney injury, means that the anticoagulation will take five days to wear off. AST 126. Lactate 2.8. Last month, creatinine was 0.8. The chest x-ray shows no acute infiltrate. The EKG is suggestive of new pericarditis with diffuse ST elevation. ALLERGIES: NO KNOWN DRUG ALLERGIES. HOME MEDICATION: List reviewed. SOCIAL HISTORY: Supportive family. Nonsmoker. Nondrinker. No illicit drugs. FAMILY HISTORY: Noncontributory. PHYSICAL EXAMINATION: VITAL SIGNS: Blood pressure currently 100/60, on Levophed and following fluid challenge. Pulse is 77 with atrial pacing. Respirations 20, afebrile. CARDIOVASCULAR: Heart tones are significantly diminished. No definite rub, gallop, or murmur is appreciated. Pacemaker site left subclavian area has some crusty material at the incision site, but no adrián pus. No definite inflammation in the surrounding skin. No History And Physical [address] [place]. [address] NAME: TAMEKA JIMENEZ : 54 STATUS : ADM IN PAT#: [id number] AGE: 66 ADM/REG DATE : 12/24/16 MR#: [id number] REPORT SERV DATE: 12/24/16 DICTATED BY: SONJA BOWEN JR. DATE: 12/24/16 REPORT STATUS : Draft TRANSCRIBED BY: KIM DATE: 12/24/16 fluctuance. DISCUSSION: Portable echocardiogram shows a new moderate-sized circumferential pericardial effusion. Consider electrode perforation of the right ventricle with hemopericardium versus a possibly septic pericarditis. She has already been volume challenged on a Levophed drip and is still borderline hypotensive. She has acute kidney injury likely secondary to hypotension. Rhythm is atrially paced with evidence of pericarditis on EKG. SUGGESTIONS: Would place immediate pericardial drain and culture. Critical Care Consult and Renal consult. Treat for sepsis. Cultures are pending. Antibiotics have already been initiated. Guarded prognosis. Thank you for this consultation. WANDA/KIM Sonja Bowen Jr., M.D. / [id number] CC: Carlos Branham M.D.
--- NOTE | ~2016-12-24 | DS ---
Discharge Summary [facility] [address] [place]. [address] NAME: TAMEKA JIMENEZ : 54 STATUS : DIS IN PAT#: [id number] AGE: 66 ADM/REG DATE : 12/24/16 MR#: [id number] REPORT SERV DATE: 01/15/17 DICTATED BY: DENAE BRANHAM DATE: 01/12/17 REPORT STATUS : Draft TRANSCRIBED BY: KIM DATE: 01/12/17 Data Collection from hospitalization DISCHARGE DIAGNOSES: 1. Pericardial effusion status post window. 2. Paroxysmal atrial fibrillation with rapid ventricular response. 3. Urinary tract infection. 4. Permanent pacemaker in situ. 5. Elevated liver function tests - resolved. 6. Dyspnea. 7. Postoperative anemia. 8. Hypertension. 9. Gastroesophageal reflux disease. 10.Depression. CONSULTATIONS: Dr. Liu Ambrose, Dr. Arun Miller, Dr. Al Sapp, and Dr. Santosh Watson. PROCEDURES: 1. Subxiphoid pericardial window, transesophageal echocardiogram on 12/24/2016. 2. CT scan of the brain without contrast, 12/24/2016. 3. CT scan of the abdomen and pelvis without contrast and CT scan of the chest without contrast, 12/24/2016. PATHOLOGY: Pericardial fluid for cytology (ThinPrep, direct smears, cell block) - hemorrhagic material, benign mesothelial cells with marked acute inflammatory background. Pericardial biopsy - benign fibromembranous and adipose tissue with rare focus of mild acute perivascular inflammation, prominent inflammatory infiltrate or reactive changes not present. DISCHARGE MEDICATIONS: Fosamax 70 mg every seven days, amoxicillin 500 mg twice a day, vitamin C 1000 mg twice a day, Tessalon 100 mg three times a day as needed, Zyrtec 10 mg daily as needed, Maximum D3 10,000 units every seven days as instructed, Celexa 20 mg daily, Nexium 20 mg daily, Lopressor 50 mg twice a day, Betapace 120 mg twice a day, Ultram 1 to 2 tablets every six hours as needed, Jantoven 5 mg daily. She was instructed not to continue Xarelto, , Cozaar, and was not to continue lido/Maalox. CONDITION ON DISCHARGE: Stable. DISPOSITION: The patient was discharged home on an 1800-calorie low cholesterol, cardiac/diabetic diet with no concentrated carbohydrates and activities as instructed. She would follow up with Dr. Carlos Branham on 02/11/[address] Al Batres on 01/02/2017. She would follow up with Dr. Nicko Saenz on 02/03/2017. She would follow up in the [facility] on 01/05/2017. HOSPITAL COURSE: This is a 66-year-old female, who is approximately two weeks status post permanent pacemaker insertion. The pacemaker site looked a bit crusty, but there was no adrián pus draining from the site. She had not reported any fever at home, but she did have some chills. She complained of chest pain that had been interpreted as indigestion. She is Discharge Summary [address] [place]. [address] NAME: TAMEKA JIMENEZ : 54 STATUS : DIS IN PAT#: [id number] AGE: 66 ADM/REG DATE : 12/24/16 MR#: [id number] REPORT SERV DATE: 01/15/17 DICTATED BY: DENAE BRANHAM DATE: 01/12/17 REPORT STATUS : Draft TRANSCRIBED BY: KIM DATE: 01/12/17 being given some stomach medication. She became more ill the evening prior to this admission and was difficult to arouse with extreme drowsiness. She had no syncope or chest pain. On her arrival, she was afebrile and was shocky with initial blood pressure reported at 74/45. Her O2 saturation on 2 L was 100%. She has significant laboratory abnormalities including a white blood cell count was 25,000. There was new acute kidney injury with BUN and creatinine of 40 and 3.2 respectively, potassium level was 5.6. BNP was 176. INR was 3.3. She is on Xarelto. This was in the presence of acute kidney injury which would mean that the anticoagulation would take five days to wear off. Last month, her creatinine level had been 0.8. Her chest x-ray showed no acute infiltrate. EKG was suggestive of new pericarditis with diffuse ST-elevation. She was admitted to the hospital at this time for further evaluation and treatment. Upon admission, portable echocardiogram showed new moderate size circumferential pericardial effusion. We would consider electrode perforation of the right ventricle with hemopericardium versus a possibly septic pericarditis. She was being volume challenged on Levophed drip, and was still borderline hypotensive. She has an acute kidney injury likely secondary to hypotension. Her rhythm was atrially paced with evidence of pericarditis on EKG. She suggested an immediate pericardial drain and culture. She was going to be treated for sepsis. Cultures were pending. Antibiotics were initiated. Her prognosis was felt to be guarded. She was seen by Dr. Santosh Watson. It was felt that she would need urgent pericardial window. Her Velasco catheter showed about 100 mL of dark yellow urine. CT scan of the chest, abdomen, and pelvis without contrast showed moderate pericardial effusion with increased density that could be hemorrhagic in nature. Pacemaker was in place. There was questionable pancreatitis. She is status post hysterectomy and cholecystectomy. She was felt to be at high risk for anuric acute kidney injury postprocedure due to shock from cardiac reasons. It was felt that she may require CRRT. A CT scan of the brain without contrast was performed. 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 She was seen by Dr. Arun Miller regarding the chief complaint of altered mental status, hypotension, and pericardial effusion. It was felt that the patient would need to be taken to the operating room for pericardial window. Consent for the procedure was obtained. Her family also agreed for consent for this procedure. The suspected decline with regard to the acute kidney injury was felt due to prolonged period of hypotension, and the use of losartan and Xarelto. Fluid of pericardial was going to be obtained for culture. Levophed drip would be continued. INR level was elevated at 3.3. The patient was taken to the operating room, where she underwent the above-mentioned procedure. Per Dr. Nicko Bradford, she tolerated this well. There were no complications. Postoperatively, she was seen by Dr. Al Sapp regarding critical care management. She was a little unstable on pressors during the surgery, and was now on the Cardiovascular ICU on pressors and ventilator. He had been asked to assist in management of her critical illness. She was felt to have postoperative respiratory failure. Ventilator management was continued. She was then sedated with propofol and fentanyl as needed. Daily awakening trials would be provided and we would wean her and potentially do a CPAP trial the following morning with hopes of extubation. She remained on Levophed at this time. She was currently rate controlled. SCDs were going to be placed for DVT prophylaxis. She was on Protonix for GI prophylaxis. The following day, a CPAP trial was going to be performed. She was awake and alert on the ventilator and following all commands. We planned to wean her from the ventilator later in the day. Levophed was held. She was extubated. Blood cultures were negative. Pericardial fluid Discharge Summary [facility] [id number] [place]. [address] NAME: TAMEKA JIMENEZ : 54 STATUS : DIS IN PAT#: [id number] AGE: 66 ADM/REG DATE : 12/24/16 MR#: [id number] REPORT SERV DATE: 01/15/17 DICTATED BY: DENAE BRANHAM DATE: 01/12/17 REPORT STATUS : Draft TRANSCRIBED BY: KIM DATE: 01/12/17 Gram stain was negative. White blood cell count was elevated with a left shift. She was now in a sinus rhythm. On 12/26/2016, creatinine level was now 0.98. She did have atrial fibrillation with rapid ventricular response overnight. She was now on an amiodarone drip, and was in a sinus rhythm. She had good urine output. Acute kidney injury had resolved. Renal perfusion had improved. On 12/27/2016, creatinine level was 0.86. She was doing well. She had no chest pain or dyspnea. Her lungs were clear. Her shock had resolved. She was changed to oral amiodarone. The following day, she did have some nausea and received IV Zofran. Telemetry revealed atrial fibrillation. She had no diarrhea, but did have nausea and vomiting. She was on an IV diltiazem drip and IV metoprolol. No anticoagulation would be given secondary to recent pericardial effusion. Amiodarone was stopped. We are going to check liver function test as well as amylase and lipase. Leukocytosis was improving. On 12/29/2016, her nausea had resolved. She was in atrial fibrillation with rapid ventricular response. Liver function tests were going to be checked. She was unable to tolerate Cardizem drip due to hypotension. She did report occasional dyspnea on exertion. On 12/30/2016, she was seen by Dr. Liu Ambrose for an electrophysiology consultation regarding atrial fibrillation with rapid ventricular response. Her pacemaker had been interrogated and there were no abnormal findings. The pacemaker and leads had been left in place. Since undergoing the pericardial window, she has had worsening problems with atrial fibrillation and rapid ventricular response. Sotalol was discontinued. The patient had been treated with amiodarone, but had problems with severe nausea and liver function abnormalities, and amiodarone had been discontinued. He had been asked to see the patient to discuss potential treatment options for her atrial fibrillation. The patient has had this prior to placement of the pacemaker, but the fact that the episodes seem to be getting worse may be secondary to recent CT surgical procedure as well as pericardial effusion. She was not responding well to lower dose sotalol, but it may be that we could try a higher dose of sotalol at this point, given that she has a pacemaker in place. It was functioning well. She will no longer had issues with bradycardia. She has normal renal function, and her baseline QT interval corrected was 417 milliseconds. We would plan to follow the QT interval carefully with both telemetry and with the EKG. We would see if the atrial fibrillation appears to improve with administration of higher dose sotalol. The following day, her episodes of atrial fibrillation were decreasing, she had more energy. We encouraged her to increase her ambulation. Sotalol was continued. Discharge planning was performed. Later in the day, she was in a sinus rhythm in the 60s. She was ambulating some. We encouraged her to use incentive spirometry. She had no issues overnight. She did have a productive cough. Discharge planning was performed. On 01/01/2017, she had no chest pain or dyspnea. Her lungs were clear. She was in a sinus rhythm. Coumadin was being used for now for anticoagulation. Discharge instructions were given. Due to her improved and stable condition, she was discharged home with the above-stated instructions. Information collected by: Georgina Richardson I submit the above information as my discharge summary. Discharge Summary [place] [id number] [facility] [place]. [address] NAME: TAMEKA JIMENEZ : 54 STATUS : DIS IN PAT#: [id number] AGE: 66 ADM/REG DATE : 12/24/16 MR#: [id number] REPORT SERV DATE: 01/15/17 DICTATED BY: DENAE BRANHAM DATE: 01/12/17 REPORT STATUS : Draft TRANSCRIBED BY: KIM DATE: 01/12/17 TG/MODL Carlos Branham M.D. / [id number] CC: Manpreet Caban M.D. Rohit Gupta, M.D. Gregg Shander, M.D. James Zellner, M.D.
--- NOTE | ~2016-12-24 | CN ---
Consultation Report [facility] [address] [place]. [address] NAME: TAMEKA MORRIS : 54 STATUS : ADM IN PAT#: [id number] AGE: 66 ADM/REG DATE : 12/24/16 MR#: [id number] REPORT SERV DATE: 12/30/16 DICTATED BY: EMILEE MOTTA DATE: 12/30/16 REPORT STATUS : Draft TRANSCRIBED BY: MODL DATE: 12/30/16 ELECTROPHYSIOLOGY CONSULTATION DATE OF CONSULTATION: 12/30/2016 REASON FOR CONSULTATION: Electrophysiology consultation regarding the atrial fibrillation with rapid ventricular response. HISTORY OF PRESENT ILLNESS: Ms Morris is a very pleasant 66-year-old woman with a known history of atrial fibrillation and tachy-maryann syndrome. On 12/09/2016, she received the pacemaker by me for this reason and to be able to continue sotalol for treatment of her atrial fibrillation. She did well after the procedure and was discharged to home. She was readmitted on 12/24/2016 with severe hypotension, was found to have evidence for tamponade. She underwent a pericardial window. During that time, the pacemaker was interrogated. There were no abnormal findings. The patient's pacemaker and leads were left in place. Since undergoing the pericardial window, she has had worsening problems with atrial fibrillation and rapid ventricular response. Sotalol was discontinued and the patient was then treated with amiodarone, but had problems with severe nausea and liver function abnormalities and the amiodarone was discontinued. I have been consulted to discuss potential treatment options for her atrial fibrillation. PAST MEDICAL HISTORY: 1. Notable for tachy-maryann syndrome with atrial fibrillation, rapid ventricular response, and underlying sinus bradycardia worsened by medication. Status post permanent pacemaker. 2. Pericardial effusion which appeared to occur approximately two weeks after the pacemaker was placed, but could potentially be secondary to pacemaker placement. Although pacemaker function and all the lead data did not suggest perforation or microperforation. 3. Severe nausea and elevated liver function tests after amiodarone administration. FAMILY HISTORY: Negative for premature coronary artery disease or sudden cardiac . SOCIAL HISTORY: Negative tobacco or alcohol. REVIEW OF SYSTEMS: As noted above. All other systems reviewed and are negative. PHYSICAL EXAMINATION: GENERAL: The patient is in no distress. VITAL SIGNS: Blood pressure of 112/60, pulse currently of 72 in sinus rhythm, respirations 16. HEENT: No icterus. Good dentition. NECK: Supple. No masses or thyromegaly Consultation Report [facility] [id number] [place]. [address] NAME: TAMEKA MORRIS : 54 STATUS : ADM IN PAT#: [id number] AGE: 66 ADM/REG DATE : 12/24/16 MR#: [id number] REPORT SERV DATE: 12/30/16 DICTATED BY: EMILEE MOTTA DATE: 12/30/16 REPORT STATUS : Draft TRANSCRIBED BY: KIM DATE: 12/30/16 LUNGS: Breathing comfortably. No rales or wheezes. COR: Normal S1, S2. No S3 or S4. No murmurs, clicks, rubs. No JVD ABD: Soft, nondistended, nontender, no hepatosplenomegaly. EXT: No clubbing, cyanosis or edema. Peripheral pulses 2+/=bilaterally. SKIN: Warm and dry. No visible lesions. MS: Chest wall without deformity, no obvious clavicular fractures. NEURO/PSYCH: Oriented X3. No anxiety or depression. STUDIES: EKG on 12/24/2016 showed an atrially paced rhythm, intrinsically conducted QRS with normal QRS duration. QT interval within normal limits. No evidence for ischemia or infarction. MOST RECENT LABORATORY VALUES: Sodium 135, potassium 4.4, creatinine of 1.06 with GFR of 64. White count is 18.7 hematocrit of 30, and platelet count 593. IMPRESSION: The patient with worsening episodes of atrial fibrillation with rapid ventricular response. She had this prior to placement of the pacemaker, but the fact that the episodes seem to be getting worse may be secondary to recent CT surgical procedure as well as pericardial effusion. She was not responding well to lower dose sotalol, but it may be that we can try a higher dose of sotalol at this point, given that she has the pacemaker in place. It is functioning well. She will no longer have issues with bradycardia. She has normal renal function and her baseline QT interval today corrected was 417 milliseconds. We will plan to follow the QT interval carefully with both telemetry and with the EKG to. We will see if the atrial fibrillation appears to improve with administration of higher dose sotalol. FERNANDA/KIM Emilee Motta M.D. / [id number] CC: Manpreet Caban M.D.
--- NOTE | ~2016-12-24 | CN ---
Consultation Report [facility] [address] [place]. [address] NAME: TAMEKA MORRIS : 54 STATUS : ADM IN PAT#: [id number] AGE: 66 ADM/REG DATE : 12/24/16 MR#: [id number] REPORT SERV DATE: 12/24/16 DICTATED BY: SANTOSH WATSON DATE: 12/24/16 REPORT STATUS : Draft TRANSCRIBED BY: MODLeonid DATE: 12/24/16 CONSULTATION NOTE DATE OF CONSULTATION: 12/24/2016 CONSULTING GROUP: [facility]. CHIEF COMPLAINT: Needs pericardial window urgently, hypotension, cardiogenic shock, and DELON. HISTORY OF PRESENT ILLNESS: Ms. Morris is a 66-year-old female with past medical history significant for atrial fib and atrial flutter, required pacemaker placement two weeks ago; DVT, on Xarelto; depression, status post ablation in April 2016; mild aortic stenosis; hypertension; and GERD who was discharged from the hospital on 12/20/2016 and returned to the emergency room today because of hypotension and shortness of breath. In the ER, the patient's blood pressure systolic was in the 70s. She required Levophed drip. She reported taking her full cardiac regimen last night, which included Cozaar, Lopressor, sotalol, and Xarelto. Spoke to CT Surgery Team who asked me to see the patient for new onset DELON, most likely prerenal. Urinalysis showed 15 hyaline casts and 100 protein. The urine color was dark yellow, but no muddy brown casts or granular casts were seen. In addition to Levophed drip, the patient is in the MICU on normal saline at 75 mL an hour. Velasco catheter shows about 100 mL of dark yellow urine. She is unable to give a history. Only complains about nausea and seems agitated and anxious. She is in critical condition from dyspnea. The surgical OR team are in the room right now, ready to transport her down for an urgent pericardial window procedure by Dr. Bradford. 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 Branham. Her pertinent medications at home, Cozaar 100 mg daily, Lopressor 25 mg b.i.d., sotalol 80 mg every 12 hours, and Xarelto 20 mg at nighttime. PAST MEDICAL HISTORY: Hypertension, mild aortic stenosis, atrial flutter, atrial fibrillation, GERD, DVT, and depression. PAST SURGICAL HISTORY: She is status post cholecystectomy, hysterectomy, ablation on April 2016 and pacemaker placement two weeks ago. FAMILY HISTORY: Father with CT and mother with stroke. SOCIAL HISTORY: Single, lives in [place], [place], has two children. No tobacco use. Occasional alcohol use. 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 REVIEW OF SYSTEMS: Positive for shortness of breath, nausea, vomiting, altered mental status, anxiety, and malaise. All other review of systems negative or unable to obtain at this time. Consultation Report [facility] [id number] [facility] [address] [place]. [address] NAME: TAMEKA MORRIS : 54 STATUS : ADM IN [facility]#: [id number] AGE: 66 ADM/REG DATE : 12/24/16 MR#: [id number] REPORT SERV DATE: 12/24/16 DICTATED BY: SANTOSH WATSON DATE: 12/24/16 REPORT STATUS : Draft TRANSCRIBED BY: KIM DATE: 12/24/16 PHYSICAL EXAMINATION: VITAL SIGNS: Temperature 97.0, pulse of 60, blood pressure 118/68, 98% O2 saturation on 2 liters nasal cannula. GENERAL: Critical condition, shortness of breath, respiratory distress. EYES: Extraocular movements are intact. No conjunctivitis. ENT: No facial droop. Normal mucosa. LYMPH: No supraclavicular or cervical lymphadenopathy. SKIN: Positive for pallor. No rash or lesions. HEART: S1 and S2, regular. Paced rhythm. 1+ edema. Faint tones. LUNGS: Few crackles. She is moving air symmetrically. Positive tachypnea. ABDOMEN: Nauseated, soft, obese, decreased bowel sounds. EXTREMITIES AND PSYCH: Velasco catheter with 100 mL of dark yellow urine. She is unable to give a history due to her anxiety. She has mild confusion and she is gasping for breath. LABS: CT of chest, abdomen, and pelvis without contrast shows moderate pericardial effusion with increased density that could be hemorrhagic in nature, pacemaker placed, questionable pancreatitis, status post hysterectomy and cholecystectomy. Sodium 132, potassium 5.6, chloride 99, bicarbonate 20, BUN 40, creatinine 3.18, glucose 164, calcium 11.0, albumin 3.4, T bilirubin 2.8, ALT 143, AST 126, troponin I less than 0.02, lactate 0.9, and BNP 176. White count 25.4, hemoglobin 11.7, hematocrit 36.1, and platelets 931. Urinalysis; specific gravity 1.017, pH 5.0, 100 protein, all else negative. There are 15 hyaline casts. No granular casts noted. Blood cultures x2 pending. ASSESSMENT AND PLAN: Ms. Morris is a 66-year-old female with moderate pericardial effusion, requiring urgent window procedure in the OR; cardiogenic shock; acute kidney injury with uncertain etiology, but most likely prerenal versus acute tubular necrosis and hypercalcemia. 1. Renal. Electrolytes of note potassium 5.6, calcium 11.0, creatinine has bumped in the course of four days from 0.83 to 3.18. PLAN: 1. The patient needs urgent pericardial window today by Dr. Bradford to try to improve cardiac output. 2. With improved cardiac output, increase renal perfusion may allow for urine output and return of kidney function. 3. She is, however, high risk for aneuric DELON post procedure due to shock from cardiac reasons. Therefore, she may require CRRT. I will notify on-call Nephrology of her case tonight and ask CT Surgery to place Vas-Cath in the OR. NAVI/KIM Santosh Watson M.D. Consultation Report [address] [address] NAME: TAMEKA MORRIS : 54 STATUS : ADM IN [facility]#: [id number] AGE: 66 ADM/REG DATE : 12/24/16 MR#: [id number] REPORT SERV DATE: 12/24/16 DICTATED BY: SANTOSH WATSON DATE: 12/24/16 REPORT STATUS : Draft TRANSCRIBED BY: MODL DATE: 12/24/16 / [id number] CC: Carlos Branham M.D.
[2016-12-24 09:58] LABS: HEMATOCRIT 36.1 % (36.0-48.0); HEMOGLOBIN 11.7 g/dL (12.0-16.0); MEAN CORPUS HGB CONC 32.4 g/dL (32.0-36.0); MEAN CORPUSCULAR HEMOGLOB 28.1 pg (26.0-34.0); MEAN CORPUSCULAR VOLUME 86.8 fL (80-100); MEAN PLATELET VOLUME 10.9 fL (9.2-13.0); RBC DISTRIBUTION WIDTH 21.2 % (12.0-16.0); RED CELL COUNT 4.16 10/6/uL (4.0-5.6)
[2016-12-24 10:05] LABS: INTERNATIONAL NORMAL RATI 3.3 UNITS (-); PARTIAL THROMBO TIME 42.7 SEC (22.5-37.2)
[2016-12-24 10:06] LABS: PROTIME (NOT ORD) 33.3 SEC (12.0-14.5)
[2016-12-24 10:13] LABS: ER CBC TAT 0 Hrs 19 Mins; PLATELET COUNT 931 10/3/uL (150-400); WHITE BLOOD CELLS 25.4 10/3/uL (4.5-10.5)
[2016-12-24 10:17] LABS: LACTATE 2.8 MMOL/L (0.3-2.4)
[2016-12-24 10:18] LABS: A/G RATIO 0.8 (0.7-1.9); ALBUMIN 3.4 G/DL (3.5-5.0); ALKALINE PHOSPHATASE 91 U/L (45-117); CO2 (CARBON DIOXIDE) 20 MMOL/L (24-34); GLOBULIN 4.2 G/DL (2.5-4.1); MANUAL DIFF YES %; SGPT(ALT) 143 U/L (5-65); TOTAL PROTEIN 7.6 G/DL (6.0-8.5); TROPONIN I <0.02 NG/ML (<0.05)
[2016-12-24 10:26] LABS: BAND NEUTROPHILS 2 %; ER DIFF TAT 0 Hrs 32 Mins; LYMPHOCYTES 10 %; LYMPHOCYTES ABSOLUTE (CALC) 2.54 10/3/uL (0.67-4.30); MONOCYTES 2 %; MONOCYTES ABSOLUTE (CALC) 0.51 10/3/uL (0.21-1.20); NEUTROPHILS ABSOLUTE (CALC) 22.35 10/3/uL (2.02-8.40); SEGMENTED NEUTROPHIL (0) 86 %; TOTAL NUCLEATED CELLS 100
[2016-12-24 10:27] LABS: ANISOCYTOSIS 1+ (5-10/OIF) (0-5/OIF)
[2016-12-24 10:33] LABS: BUN (BLOOD UREA NITROGEN) 40 MG/DL (6-23); CHLORIDE, SERUM 99 MMOL/L (96-112); CREATININE 3.18 MG/DL (0.55-1.02); GFR AFRICAN AMERICAN 17 ML/MIN (>=60); GFR NON AFRICAN AMERICAN 15 ML/MIN (>=60); GLUCOSE, SERUM 164 MG/DL (60-99); POTASSIUM, SERUM 5.6 MMOL/L (3.5-5.3); SGOT(AST) 126 U/L (5-40); SODIUM, SERUM 132 MMOL/L (135-148); TOTAL BILIRUBIN 2.8 MG/DL (0-1.2)
[~2016-12-24 11:04] MED LIST changes: +FLECAINIDE100 MG PO; +LIDO PO; +TESS PO; +ULTRAM50 PO; +[UNRECOGNIZED DRUG - OTHER] PO
[2016-12-24 11:26] LABS: ASCORBIC ACID (UR NOT ORDER) NEG (NEG); BILIRUBIN, URINE NEGATIVE (NEG); ER URINALYSIS TAT 0 Hrs 28 Mins; KETONE, URINE NEGATIVE (NEG); LEUKOCYTE ESTERASE(NOT OR NEG (NEG); NITRITE (URINE) NEG (NEG); WBC (NOT ORDERED) (RFLEX) 4 (0-5)
[2016-12-24 16:02] LABS: BE (BASE EXCESS) -9.5 MEQ/L (0 +/- 2.5); CARBOXYHEMOGLOBIN 0.3 % (0-3); HEMOBLOGIN CONTENT 10.1 G/DL (12-16); INSTRUMENT SERIAL # 11843; METHEMOGLOBIN 0.7 % (0-3); MODE SIMV; O2 CONTENT 14.5 VOL% (18-24); OPERATOR ID 18642; PCO2 (CO2 TENSION) 34 MMHG (35-45); PO2 (O2 TENSION) 246 MMHG (79-93); PRESSURE SUPPORT 10 cm.H2O; SAMPLE Arterial; TIDAL VOLUME 500 ML
[2016-12-24 17:24] LABS: MEAN CORPUS HGB CONC 32.3 g/dL (32.0-36.0); MEAN CORPUSCULAR HEMOGLOB 27.7 pg (26.0-34.0); MEAN CORPUSCULAR VOLUME 85.7 fL (80-100); MEAN PLATELET VOLUME 10.5 fL (9.2-13.0); NUCLEATED RED BLOOD CELLS 2.4 /100WBC (0-0); RBC DISTRIBUTION WIDTH 21.1 % (12.0-16.0); WHITE BLOOD CELLS 23.3 10/3/uL (4.5-10.5)
[2016-12-24 17:27] LABS: HEMATOCRIT 28.2 % (36.0-48.0); HEMOGLOBIN 9.1 g/dL (12.0-16.0); RED CELL COUNT 3.29 10/6/uL (4.0-5.6)
[2016-12-24 17:28] LABS: INTERNATIONAL NORMAL RATI 3.2 UNITS (-); PARTIAL THROMBO TIME 40.5 SEC (22.5-37.2); PLATELET COUNT 704 10/3/uL (150-400); PROTIME (NOT ORD) 32.7 SEC (12.0-14.5)
[2016-12-24 17:29] LABS: MANUAL DIFF YES %
[2016-12-24 17:31] LABS: BUN (BLOOD UREA NITROGEN) 39 MG/DL (6-23); CHLORIDE, SERUM 108 MMOL/L (96-112); CO2 (CARBON DIOXIDE) 18 MMOL/L (24-34); GLUCOSE, SERUM 162 MG/DL (60-99); PHOSPHORUS, SERUM 3.1 MG/DL (2.5-4.5); SODIUM, SERUM 133 MMOL/L (135-148)
[2016-12-24 17:33] LABS: ALBUMIN 2.6 G/DL (3.5-5.0); CALCIUM, SERUM 8.5 MG/DL (8.5-10.4); CREATININE 2.58 MG/DL (0.55-1.02); GFR AFRICAN AMERICAN 22 ML/MIN (>=60); GFR NON AFRICAN AMERICAN 19 ML/MIN (>=60); POTASSIUM, SERUM 4.3 MMOL/L (3.5-5.3)
[2016-12-24 18:41] LABS: BASOPHILS 1 %; BASOPHILS ABSOLUTE (CALC) 0.23 10/3/uL (0.0-0.16); LYMPHOCYTES 6 %; MONOCYTES 2 %; MONOCYTES ABSOLUTE (CALC) 0.47 10/3/uL (0.21-1.20); SEGMENTED NEUTROPHIL (0) 91 %; TOTAL NUCLEATED CELLS 100
[2016-12-24 18:42] LABS: ANISOCYTOSIS 1+ (5-10/OIF) (0-5/OIF)
[2016-12-24 18:43] LABS: BASOPHILIC STIPPLING 1+ (2-5/OIF) (0-1/OIF); BURR CELLS 1+ (3-10/OIF) (0-2/OIF); MACROCYTES 1+ (5-10/OIF) (0-5/OIF); POLYCHROMASIA 1+ (2-5/OIF) (0-1/OIF); TEARDROP SHAPED RBCS FEW (3-10/OIF)
[2016-12-25 01:01] LABS: CHLORIDE, SERUM 109 MMOL/L (96-112); CO2 (CARBON DIOXIDE) 22 MMOL/L (24-34); GLUCOSE, SERUM 103 MG/DL (60-99); POTASSIUM, SERUM 4.5 MMOL/L (3.5-5.3); SODIUM, SERUM 139 MMOL/L (135-148)
[2016-12-25 01:03] LABS: BUN (BLOOD UREA NITROGEN) 33 MG/DL (6-23); CALCIUM, SERUM 8.8 MG/DL (8.5-10.4); CREATININE 1.63 MG/DL (0.55-1.02); GFR AFRICAN AMERICAN 38 ML/MIN (>=60); GFR NON AFRICAN AMERICAN 33 ML/MIN (>=60)
[2016-12-25 03:40] LABS: BE (BASE EXCESS) -3.7 MEQ/L (0 +/- 2.5); CARBOXYHEMOGLOBIN 0.3 % (0-3); HEMOBLOGIN CONTENT 10.8 G/DL (12-16); INSTRUMENT SERIAL # 11843; METHEMOGLOBIN 0.5 % (0-3); MODE CMV; O2 CONTENT 14.9 VOL% (18-24); OPERATOR ID 23712; PCO2 (CO2 TENSION) 32 MMHG (35-45); PO2 (O2 TENSION) 110 MMHG (79-93); SAMPLE Arterial; TIDAL VOLUME 500 ML; pH 7.42 (7.37-7.43)
[2016-12-25 04:11] LABS: HEMATOCRIT 29.6 % (36.0-48.0); HEMOGLOBIN 9.7 g/dL (12.0-16.0); MEAN CORPUS HGB CONC 32.8 g/dL (32.0-36.0); MEAN CORPUSCULAR HEMOGLOB 28.4 pg (26.0-34.0); MEAN CORPUSCULAR VOLUME 86.8 fL (80-100); NUCLEATED RED BLOOD CELLS 0.7 /100WBC (0-0); RBC DISTRIBUTION WIDTH 20.5 % (12.0-16.0); RED CELL COUNT 3.41 10/6/uL (4.0-5.6)
[2016-12-25 04:13] LABS: INTERNATIONAL NORMAL RATI 1.8 UNITS (-); PARTIAL THROMBO TIME 33.6 SEC (22.5-37.2); PLATELET COUNT 725 10/3/uL (150-400); WHITE BLOOD CELLS 26.7 10/3/uL (4.5-10.5)
[2016-12-25 04:14] LABS: MANUAL DIFF YES %
[2016-12-25 04:15] LABS: FIBRINOGEN 539 MG/DL (230-462)
[2016-12-25 04:19] LABS: PROTIME (NOT ORD) 21.1 SEC (12.0-14.5)
[2016-12-25 04:25] LABS: CALCIUM, SERUM 8.9 MG/DL (8.5-10.4); CHLORIDE, SERUM 111 MMOL/L (96-112); POTASSIUM, SERUM 4.1 MMOL/L (3.5-5.3); SODIUM, SERUM 135 MMOL/L (135-148)
[2016-12-25 04:26] LABS: ANISOCYTOSIS 1+ (5-10/OIF) (0-5/OIF); BAND NEUTROPHILS 5 %; BASOPHILS 1 %; BASOPHILS ABSOLUTE (CALC) 0.27 10/3/uL (0.0-0.16); BURR CELLS 1+ (3-10/OIF) (0-2/OIF); LYMPHOCYTES 10 %; LYMPHOCYTES ABSOLUTE (CALC) 2.67 10/3/uL (0.67-4.30); MONOCYTES 3 %; NEUTROPHILS ABSOLUTE (CALC) 22.96 10/3/uL (2.02-8.40); SEGMENTED NEUTROPHIL (0) 81 %; TOTAL NUCLEATED CELLS 100
[2016-12-25 04:27] LABS: RBC MORPHOLOGY ABN (NORMAL)
[2016-12-25 04:28] LABS: BUN (BLOOD UREA NITROGEN) 29 MG/DL (6-23); CO2 (CARBON DIOXIDE) 22 MMOL/L (24-34); CREATININE 1.37 MG/DL (0.55-1.02); GFR AFRICAN AMERICAN 47 ML/MIN (>=60); GFR NON AFRICAN AMERICAN 41 ML/MIN (>=60); GLUCOSE, SERUM 103 MG/DL (60-99)
[2016-12-25 12:54] LABS: BE (BASE EXCESS) -3.2 MEQ/L (0 +/- 2.5); CARBOXYHEMOGLOBIN 0.3 % (0-3); DEVICE NC; HCO3 (ACTUAL BICARBONATE) 20.3 MEQ/L (23-27); HEMOBLOGIN CONTENT 10.6 G/DL (12-16); INSTRUMENT SERIAL # 11843; METHEMOGLOBIN 0.4 % (0-3); O2 CONTENT 14.4 VOL% (18-24); OPERATOR ID 13715; PCO2 (CO2 TENSION) 31 MMHG (35-45); PO2 (O2 TENSION) 97 MMHG (79-93); SAMPLE Arterial; pH 7.43 (7.37-7.43)
[2016-12-25 19:59] LABS: ASCORBIC ACID (UR NOT ORDER) NEG (NEG); BILIRUBIN, URINE NEGATIVE (NEG); KETONE, URINE NEGATIVE (NEG); WBC (NOT ORDERED) (RFLEX) 8 (0-5)
[2016-12-25 20:09] LABS: LEUKOCYTE ESTERASE(NOT OR TRACE (NEG)
[2016-12-26 01:48] LABS: HEMATOCRIT 29.6 % (36.0-48.0); HEMOGLOBIN 9.6 g/dL (12.0-16.0); MEAN CORPUS HGB CONC 32.4 g/dL (32.0-36.0); MEAN CORPUSCULAR HEMOGLOB 28.7 pg (26.0-34.0); MEAN CORPUSCULAR VOLUME 88.6 fL (80-100); MEAN PLATELET VOLUME 10.1 fL (9.2-13.0); NUCLEATED RED BLOOD CELLS 0.7 /100WBC (0-0); RBC DISTRIBUTION WIDTH 20.8 % (12.0-16.0); RED CELL COUNT 3.34 10/6/uL (4.0-5.6); WHITE BLOOD CELLS 17.5 10/3/uL (4.5-10.5)
[2016-12-26 01:50] LABS: MANUAL DIFF YES %; PLATELET COUNT 731 10/3/uL (150-400)
[2016-12-26 01:51] LABS: INTERNATIONAL NORMAL RATI 1.5 UNITS (-); PARTIAL THROMBO TIME 29.8 SEC (22.5-37.2); PROTIME (NOT ORD) 17.9 SEC (12.0-14.5)
[2016-12-26 02:02] LABS: CALCIUM, SERUM 9.1 MG/DL (8.5-10.4); CHLORIDE, SERUM 109 MMOL/L (96-112); CO2 (CARBON DIOXIDE) 24 MMOL/L (24-34); CREATININE 0.98 MG/DL (0.55-1.02); GFR AFRICAN AMERICAN 71 ML/MIN (>=60); GFR NON AFRICAN AMERICAN 61 ML/MIN (>=60); GLUCOSE, SERUM 118 MG/DL (60-99); POTASSIUM, SERUM 4.2 MMOL/L (3.5-5.3); SODIUM, SERUM 140 MMOL/L (135-148)
[2016-12-26 02:03] LABS: BUN (BLOOD UREA NITROGEN) 18 MG/DL (6-23); PHOSPHORUS, SERUM 1.6 MG/DL (2.5-4.5)
[2016-12-26 02:44] LABS: BAND NEUTROPHILS 2 %; BASOPHILS 3 %; BASOPHILS ABSOLUTE (CALC) 0.53 10/3/uL (0.0-0.16); LYMPHOCYTES 15 %; LYMPHOCYTES ABSOLUTE (CALC) 2.63 10/3/uL (0.67-4.30); MONOCYTES 4 %; NEUTROPHILS ABSOLUTE (CALC) 13.65 10/3/uL (2.02-8.40); SEGMENTED NEUTROPHIL (0) 76 %; TOTAL NUCLEATED CELLS 100
[2016-12-26 02:45] LABS: ANISOCYTOSIS 1+ (5-10/OIF) (0-5/OIF); BURR CELLS 1+ (3-10/OIF) (0-2/OIF)
[2016-12-27 01:32] LABS: PHOSPHORUS, SERUM 2.1 MG/DL (2.5-4.5)
[2016-12-27 04:29] LABS: BASOPHILS 1.4 %; BASOPHILS ABSOLUTE 0.22 10/3/uL (0.0-0.16); EOSINOPHILS 1.7 %; EOSINOPHILS ABSOLUTE 0.26 10/3/uL (0.0-0.53); HEMATOCRIT 27.9 % (36.0-48.0); HEMOGLOBIN 8.8 g/dL (12.0-16.0); IMMATURE GRANULOCYTES ABSOLUTE 0.15 10/3/uL (0.0-0.11); LYMPHOCYTES 23.5 %; LYMPHOCYTES ABSOLUTE 3.56 10/3/uL (0.67-4.30); MANUAL DIFF NO %; MEAN CORPUS HGB CONC 31.5 g/dL (32.0-36.0); MEAN CORPUSCULAR VOLUME 88.9 fL (80-100); MEAN PLATELET VOLUME 10.2 fL (9.2-13.0); MONOCYTES 8.2 %; MONOCYTES ABSOLUTE 1.24 10/3/uL (0.21-1.20); NEUTROPHILS 64.2 %; NEUTROPHILS ABSOLUTE 9.75 10/3/uL (2.02-8.40); NUCLEATED RED BLOOD CELLS 1.8 /100WBC (0-0); PLATELET COUNT 651 10/3/uL (150-400); RBC DISTRIBUTION WIDTH 20.4 % (12.0-16.0); RED CELL COUNT 3.14 10/6/uL (4.0-5.6); WHITE BLOOD CELLS 15.2 10/3/uL (4.5-10.5)
[2016-12-27 04:35] LABS: BUN (BLOOD UREA NITROGEN) 10 MG/DL (6-23); CALCIUM, SERUM 9.2 MG/DL (8.5-10.4); CHLORIDE, SERUM 105 MMOL/L (96-112); CO2 (CARBON DIOXIDE) 26 MMOL/L (24-34); CREATININE 0.86 MG/DL (0.55-1.02); GFR AFRICAN AMERICAN 83 ML/MIN (>=60); GFR NON AFRICAN AMERICAN 71 ML/MIN (>=60); GLUCOSE, SERUM 110 MG/DL (60-99); PHOSPHORUS, SERUM 2.2 MG/DL (2.5-4.5); POTASSIUM, SERUM 4.2 MMOL/L (3.5-5.3); SODIUM, SERUM 138 MMOL/L (135-148)
[2016-12-28 10:57] LABS: ALBUMIN 2.9 G/DL (3.5-5.0); ALKALINE PHOSPHATASE 89 U/L (45-117); BUN (BLOOD UREA NITROGEN) 10 MG/DL (6-23); CALCIUM, SERUM 9.8 MG/DL (8.5-10.4); CHLORIDE, SERUM 102 MMOL/L (96-112); CO2 (CARBON DIOXIDE) 25 MMOL/L (24-34); CREATININE 0.79 MG/DL (0.55-1.02); GFR AFRICAN AMERICAN 92 ML/MIN (>=60); GFR NON AFRICAN AMERICAN 79 ML/MIN (>=60); GLUCOSE, SERUM 115 MG/DL (60-99); POTASSIUM, SERUM 4.4 MMOL/L (3.5-5.3); SGOT(AST) 94 U/L (5-40); SGPT(ALT) 381 U/L (5-65); SODIUM, SERUM 135 MMOL/L (135-148); TOTAL PROTEIN 6.5 G/DL (6.0-8.5)
[2016-12-28 10:58] LABS: DIRECT BILIRUBIN 0.5 MG/DL (0.0-0.4); INDIRECT BILIRUBIN(NOT ORDER) 0.5 MG/DL (0.1-0.9)
[2016-12-28 12:22] LABS: FREE T4 1.52 NG/DL (0.76-1.46)
[2016-12-28 13:04] LABS: ASCORBIC ACID (UR NOT ORDER) 40 (NEG); BILIRUBIN, URINE NEGATIVE (NEG); KETONE, URINE 20 MG/DL (NEG); LEUKOCYTE ESTERASE(NOT OR MOD (NEG); WBC (NOT ORDERED) (RFLEX) 140 (0-5)
[2016-12-30 04:31] LABS: HEMOGLOBIN 9.3 g/dL (12.0-16.0); MEAN CORPUSCULAR VOLUME 90.4 fL (80-100); NUCLEATED RED BLOOD CELLS 2.6 /100WBC (0-0); PLATELET COUNT 593 10/3/uL (150-400); RBC DISTRIBUTION WIDTH 21.2 % (12.0-16.0); RED CELL COUNT 3.32 10/6/uL (4.0-5.6); WHITE BLOOD CELLS 18.7 10/3/uL (4.5-10.5)
[2016-12-30 04:33] LABS: MANUAL DIFF YES %
[2016-12-30 04:36] LABS: A/G RATIO 0.9 (0.7-1.9); ALBUMIN 2.8 G/DL (3.5-5.0); ALKALINE PHOSPHATASE 109 U/L (45-117); BUN (BLOOD UREA NITROGEN) 14 MG/DL (6-23); CALCIUM, SERUM 11.3 MG/DL (8.5-10.4); CHLORIDE, SERUM 104 MMOL/L (96-112); CO2 (CARBON DIOXIDE) 25 MMOL/L (24-34); CREATININE 1.06 MG/DL (0.55-1.02); GFR AFRICAN AMERICAN 64 ML/MIN (>=60); GFR NON AFRICAN AMERICAN 55 ML/MIN (>=60); GLOBULIN 3.2 G/DL (2.5-4.1); GLUCOSE, SERUM 109 MG/DL (60-99); POTASSIUM, SERUM 4.4 MMOL/L (3.5-5.3); SGOT(AST) 49 U/L (5-40); SGPT(ALT) 222 U/L (5-65); SODIUM, SERUM 135 MMOL/L (135-148); TOTAL BILIRUBIN 0.6 MG/DL (0-1.2)
[2016-12-30 04:42] LABS: BAND NEUTROPHILS 1 %; EOSINOPHILS 1 %; EOSINOPHILS ABSOLUTE (CALC) 0.19 10/3/uL (0.0-0.53); IMMATURE GRANS ABSOLUTE (CALC) 0.56 10/3/uL (0.0-0.11); LYMPHOCYTES 24 %; LYMPHOCYTES ABSOLUTE (CALC) 4.49 10/3/uL (0.67-4.30); METAMYELOCYTES 3 %; MONOCYTES 4 %; MONOCYTES ABSOLUTE (CALC) 0.75 10/3/uL (0.21-1.20); NEUTROPHILS ABSOLUTE (CALC) 12.72 10/3/uL (2.02-8.40); PLATELET ESTIMATE SLT INC (ADEQUATE); SEGMENTED NEUTROPHIL (0) 67 %; TOTAL NUCLEATED CELLS 100
[2016-12-30 04:43] LABS: ACANTHOCYTES FEW (3-10/OIF); ANISOCYTOSIS 1+ (5-10/OIF) (0-5/OIF); POLYCHROMASIA 1+ (2-5/OIF) (0-1/OIF); TARGET CELLS FEW (3-10/OIF) (0-1/OIF); TEARDROP SHAPED RBCS FEW (3-10/OIF)
[2016-12-31 05:45] LABS: HEMATOCRIT 28.7 % (36.0-48.0); HEMOGLOBIN 9.1 g/dL (12.0-16.0); MANUAL DIFF YES %; MEAN CORPUS HGB CONC 31.7 g/dL (32.0-36.0); MEAN CORPUSCULAR HEMOGLOB 28.4 pg (26.0-34.0); MEAN CORPUSCULAR VOLUME 89.7 fL (80-100); MEAN PLATELET VOLUME 10.2 fL (9.2-13.0); NUCLEATED RED BLOOD CELLS 2.9 /100WBC (0-0); PLATELET COUNT 577 10/3/uL (150-400); RBC DISTRIBUTION WIDTH 21.1 % (12.0-16.0); WHITE BLOOD CELLS 16.8 10/3/uL (4.5-10.5)
[2016-12-31 05:53] LABS: A/G RATIO 0.9 (0.7-1.9); ALBUMIN 2.9 G/DL (3.5-5.0); BUN (BLOOD UREA NITROGEN) 16 MG/DL (6-23); CHLORIDE, SERUM 103 MMOL/L (96-112); CO2 (CARBON DIOXIDE) 25 MMOL/L (24-34); CREATININE 0.87 MG/DL (0.55-1.02); GFR AFRICAN AMERICAN 82 ML/MIN (>=60); GFR NON AFRICAN AMERICAN 70 ML/MIN (>=60); GLOBULIN 3.4 G/DL (2.5-4.1); GLUCOSE, SERUM 95 MG/DL (60-99); POTASSIUM, SERUM 4.5 MMOL/L (3.5-5.3); SGOT(AST) 45 U/L (5-40); SGPT(ALT) 187 U/L (5-65); SODIUM, SERUM 137 MMOL/L (135-148); TOTAL PROTEIN 6.3 G/DL (6.0-8.5)
[2016-12-31 05:54] LABS: ALKALINE PHOSPHATASE 125 U/L (45-117); TOTAL BILIRUBIN 1.1 MG/DL (0-1.2)
[2016-12-31 06:30] LABS: BAND NEUTROPHILS 3 %; EOSINOPHILS 2 %; EOSINOPHILS ABSOLUTE (CALC) 0.34 10/3/uL (0.0-0.53); IMMATURE GRANS ABSOLUTE (CALC) 0.67 10/3/uL (0.0-0.11); LYMPHOCYTES 16 %; LYMPHOCYTES ABSOLUTE (CALC) 2.69 10/3/uL (0.67-4.30); METAMYELOCYTES 3 %; MONOCYTES 3 %; MYELOCYTES 1 %; PLATELET ESTIMATE SLT INC (ADEQUATE); SEGMENTED NEUTROPHIL (0) 72 %; TOTAL NUCLEATED CELLS 100
[2016-12-31 06:31] LABS: MACROCYTES 1+ (5-10/OIF) (0-5/OIF); MICROCYTES 1+ (5-10/OIF) (0-5/OIF); POLYCHROMASIA 1+ (2-5/OIF) (0-1/OIF)
[2017-01-01 07:48] LABS: HEMATOCRIT 28.6 % (36.0-48.0); INTERNATIONAL NORMAL RATI 1.4 UNITS (-); MEAN CORPUS HGB CONC 31.5 g/dL (32.0-36.0); MEAN CORPUSCULAR HEMOGLOB 27.8 pg (26.0-34.0); MEAN CORPUSCULAR VOLUME 88.3 fL (80-100); MEAN PLATELET VOLUME 9.7 fL (9.2-13.0); PLATELET COUNT 537 10/3/uL (150-400); PROTIME (NOT ORD) 16.8 SEC (12.0-14.5); RBC DISTRIBUTION WIDTH 21.5 % (12.0-16.0); RED CELL COUNT 3.24 10/6/uL (4.0-5.6); WHITE BLOOD CELLS 13.7 10/3/uL (4.5-10.5)
[2017-01-01 07:50] LABS: MANUAL DIFF YES %
[2017-01-01 08:00] LABS: BUN (BLOOD UREA NITROGEN) 16 MG/DL (6-23); CHLORIDE, SERUM 101 MMOL/L (96-112); CO2 (CARBON DIOXIDE) 25 MMOL/L (24-34); CREATININE 0.92 MG/DL (0.55-1.02); GFR AFRICAN AMERICAN 76 ML/MIN (>=60); GFR NON AFRICAN AMERICAN 66 ML/MIN (>=60); GLUCOSE, SERUM 97 MG/DL (60-99); POTASSIUM, SERUM 4.2 MMOL/L (3.5-5.3); SODIUM, SERUM 134 MMOL/L (135-148)
[2017-01-01 08:01] LABS: CALCIUM, SERUM 11.9 MG/DL (8.5-10.4)
[2017-01-01 08:38] LABS: BAND NEUTROPHILS 4 %; BASOPHILS 1 %; BASOPHILS ABSOLUTE (CALC) 0.14 10/3/uL (0.0-0.16); EOSINOPHILS 2 %; EOSINOPHILS ABSOLUTE (CALC) 0.27 10/3/uL (0.0-0.53); IMMATURE GRANS ABSOLUTE (CALC) 0.27 10/3/uL (0.0-0.11); LYMPHOCYTES 21 %; LYMPHOCYTES ABSOLUTE (CALC) 2.88 10/3/uL (0.67-4.30); METAMYELOCYTES 1 %; MONOCYTES 8 %; MYELOCYTES 1 %; NEUTROPHILS ABSOLUTE (CALC) 9.04 10/3/uL (2.02-8.40); NUCLEATED RED BLOOD CELLS 0 /100WBC (0); SEGMENTED NEUTROPHIL (0) 62 %; TOTAL NUCLEATED CELLS 100
[2017-01-01 08:39] LABS: ANISOCYTOSIS 1+ (5-10/OIF) (0-5/OIF); MACROCYTES 1+ (5-10/OIF) (0-5/OIF); PLATELET ESTIMATE SLT INC (ADEQUATE); POLYCHROMASIA 2+ (5-10/OIF) (0-1/OIF)
[2017-01-01 08:40] LABS: GIANT PLATELET OCC
[2017-01-01] MEDS ORDERED: JANTOVEN5 MG PO (08:42)
[2017-01-01] MEDS ORDERED: ULTRAM50 PO (08:44)
[2017-01-01] MEDS ORDERED: AMOXIL500C PO (08:45)
[2017-01-01] MEDS ORDERED: LOP50 PO (08:46)
[2017-01-01] MEDS ORDERED: BETAP120 PO (08:48)
[2017-01-01] MEDS ORDERED: VITC500 PO (08:52)
== END 2017-01-01 11:49 | disposition home or self-care (01) | DRG 270 ==
LOC: ER 11:04 → MIC 12:46 → CVICU 15:25 → 5NO 12-27 17:28
PROVIDERS: Emergency Medicine; Internal Medicine; Internal Medicine Cardiovascular Disease; Internal Medicine Nephrology; Nurse Practitioner Family; Thoracic Surgery (Cardiothoracic Vascular Surgery)
PROC: B246ZZ4 Ultrasonography of Right and Left Heart, Transesophageal (ICD-10-PCS; 2016-12-24)
PROC: 30233K1 Transfusion of Nonautologous Frozen Plasma into Peripheral Vein, Percutaneous Approach (ICD-10-PCS; 2016-12-24)
PROC: 0W9D0ZZ Drainage of Pericardial Cavity, Open Approach (ICD-10-PCS; principal; 2016-12-24 13:45)
DX: I31.3 Pericardial effusion (noninflammatory) (principal); R57.0 Cardiogenic shock; I31.4 Cardiac tamponade; J95.821 Acute postprocedural respiratory failure; I48.91 Unspecified atrial fibrillation; Z95.0 Presence of cardiac pacemaker; I35.2 Nonrheumatic aortic (valve) stenosis with insufficiency; Z79.899 Other long term (current) drug therapy; Z79.01 Long term (current) use of anticoagulants; F32.9 Major depressive disorder, single episode, unspecified; I10 Essential (primary) hypertension; K21.9 Gastro-esophageal reflux disease without esophagitis; Z90.49 Acquired absence of other specified parts of digestive tract; Z98.890 Other specified postprocedural states; Z90.710 Acquired absence of both cervix and uterus; Z82.3 Family history of stroke; Z82.49 Family history of ischemic heart disease and other diseases of the circulatory system; D64.9 Anemia, unspecified
CPT/HCPCS: 31720; 36415; 70450; 71010; 71020; 71250; 74176; 80048; 80053; 80069; 80076; 81001; 82150; 82330; 82570; 82805; 83605; 83690; 83735; 83880; 84100; 84132; 84145; 84300; 84439; 84443; 84484; 84540; 85025; 85384; 85610; 85730; 86850; 86900; 86901; 86920; 87015; 87040; 87070; 87075; 87077; 87086; 87102; 87116; 87186; 87205; 87641; 88112; 88305; 93005; 94002; 94003; 94640; 94660; 94770; 96365; 96375; 96376; 99291; A9270-GY; C9113; J0282; J0330; J2250; J2405; J2543; J2550; J2795; J3010; J3370; P9012; P9059